=== PATIENT | female | born 1975 | race Caucasian/White ===

== ENCOUNTER 2017-11-17 21:12 | Inpatient (IN) | END 2017-11-20 11:33 | disposition home or self-care (01) | DRG 378 ==

== ENCOUNTER 2018-01-05 18:49 | Emergency (ER) | END 2018-01-05 22:38 | disposition left against medical advice (07) ==

== ENCOUNTER 2019-04-15 06:22 | Emergency (ER) | payer BC ==
[~2019-04-15] VITALS: Ht 162.6 cm; Wt 99.8 kg
[~2019-04-15 06:22] MED LIST: PANT40TA3 PO
[2019-04-15 06:25] VITALS: Ht 162.6 cm; Wt 99.8 kg
[2019-04-15] MEDS ORDERED: METHYLPREDNISOLONE 125 MG INJ IV ONE (07:00)
[2019-04-15] MEDS ORDERED: FAMOTIDINE 20 MG INJ IV ONE (07:00)
[2019-04-15] MEDS ORDERED: DIPHENHYDRAMINE 50 MG INJ IV ONE (07:00)
[2019-04-15] MEDS ORDERED: DIPHENHYDRAMINE 50 MG INJ IV STA (08:22)
[2019-04-15] MEDS ORDERED: EPINEPHrine 1 MG INJ IM STA ×2 (08:22→08:58)
[2019-04-15] MEDS ORDERED: ALBUTEROL 0.5% (NEB) 2.5 MG/0.5 ML AMP INH STA (08:22)
--- NOTE | 2019-04-15 08:33 | ERD ---
ER Documentation Chief Complaint Chief Complaint woke up with rt side headcahe , rt toothache and lip swelling HPI This is a 44-year-old female no past medical history that presents to the emergency department with a sudden onset of swelling of her lower lip. The patient states she awoke this morning and went to brush her teeth. When she brushed her teeth she noticed that her lips appeared very swollen. She also stated her tongue was swollen. Contrary to the triage note the patient denies any toothache. She is never had any allergies or anaphylactic reaction in the past. She has not been on any recent antibiotics. She said no fevers no shaking no chills. She does complain of difficulty in swallowing. ROS All systems reviewed and are negative except as per history of present illness. Medications Home Meds Active Scripts Pantoprazole* (Protonix*) 40 Mg Tablet.dr, 40 MG PO DAILY for 30 Days, #30 TAB Prov:NICHOLE FROST 11/20/17 Allergies Allergies: Coded Allergies: No Known Allergy (Unverified , 11/17/17) PMhx/Soc Medical and Surgical Hx: pt denies Medical Hx, pt denies Surgical Hx History of Surgery: No Anesthesia Reaction: No Hx Neurological Disorder: No Hx Respiratory Disorders: No Hx Cardiac Disorders: No Hx Psychiatric Problems: No Hx Miscellaneous Medical Probl: No Hx Alcohol Use: No Hx Substance Use: No Hx Tobacco Use: No Smoking Status: Never smoker Physical Exam Vitals Vital Signs Date Temp Pulse Resp B/P (MAP) Pulse Ox O2 O2 Flow FiO2 Time Delivery Rate 04/15/19 98.1 87 18 172/80 99 06:25 (110) Physical Exam Constitutional:Well-developed. Well-nourished. HEENT:Normocephalic. Atraumatic.Pupils were equal round reactive to light. Angioedema of the lower lip, macroglossia . no pooling of secretions within the oropharynx. No trismus. No brawny induration. No tenderness with percussion of the teeth. Neck: No nuchal rigidity. No lymphadenopathy. Respiratory: Not using accessory muscles of respiration.Lungs were clear to auscultation bilaterally. No rhonchi. No rales. No wheezing. Cardiovascular: Regular rate regular rhythm.No murmurs. No rubs were appreciated.S1, S2 normal. Distal pulses are palpable 2+ bilaterally. Skin: No petechia, no purpura. No lesions on the palms or the soles of the feet. No maculopapular rash. NEURO: Patient was alert, awake, orientated x3.patient was able to ambulate without any difficulty. Results 24 hrs Current Medications Medications Dose Sig/Chichi Start Time Status Last (Trade) Ordered Route PRN Stop Time Admin Dose Reason Admin 125 mg ONCE ONCE 04/15/19 DC 04/15/19 Methylprednis IV 07:00 07:11 olone Sodium 04/15/19 07:02 Succinate (Solu-Medrol) Famotidine 20 mg ONCE ONCE 04/15/19 DC 04/15/19 (Pepcid Iv) IV 07:00 07:11 04/15/19 07:02 50 mg ONCE ONCE 04/15/19 DC 04/15/19 Diphenhydrami IV 07:00 07:11 ne HCl 04/15/19 07:02 (Benadryl) 50 mg ONCE STAT 04/15/19 DC Diphenhydrami IV 08:22 ne HCl 04/15/19 08:24 (Benadryl) Epinephrine 0.5 mg ONCE STAT 04/15/19 DC IM 08:22 (EPINEPHrine) 04/15/19 08:24 Albuterol 10 mg ONCE STAT 04/15/19 DC (Proventil INH 08:22 0.5% (Neb)) 04/15/19 08:24 Procedures/MDM Is a 44-year-old female that presented to the emergency department for severe angioedema. Patient was immediately placed in a monitor and storage bin tender continuous pulse oximetry and IV access was attempted by nursing staff. The patient had received IV Benadryl Pepcid and steroids with no improvement of her symptoms. She received epinephrine. She was also given a continuous nebulizer treatment. On her second dose of epinephrine the patient had a significant amount of improvement of her angioedema which had completely resolved. I do feel that the patient was safe to be discharged home. The patient was discharged home in fair condition. They were instructed to return to the emergency department at any time if there was any worsening of their condition. The patient stated they would follow up with their PCP in the next 24-48 hours to initiate a suitable medication regimen under the care of their PCP as well as to allow their PCP to monitor any drug reactions. The patient was discharged home with prescriptions after they gave informed consent to the new medication. They were also fully informed by myself on the adverse effects and adverse drug interactions in order to provide adequate safeguards to prevent possible adverse reactions to medications. Critical Care: Time: 40 minutes Treatments/Evaluations: Close monitoring and treatment of unstable vital signs, cardiorespiratory, and neurologic status, while maintaining tight balance of fluid, respiratory, and cardiac interventions. Time does not include performing any of the above billable procedures. Departure Diagnosis: Primary Impression: Angioedema Encounter type: initial encounter Qualified Codes: T78.3XXA - Angioneurotic edema, initial encounter Condition: ANA Bernal MD Apr 15, 2019 08:33
[2019-04-15] MEDS ORDERED: EPIN0.3P4 INJ (09:05)
[2019-04-15] MEDS ORDERED: PRED20TA PO (09:05)
[2019-04-15 10:14] VITALS: BP 151/88; PULSE 98; RESP 20
== END 2019-04-15 10:20 | disposition home or self-care (01) ==
LOC: FTE 06:22 → E/R 10:20
DX: T78.3XXA Angioneurotic edema, initial encounter (principal)
CPT/HCPCS: 94644; 96372; 96374; 96375; 96376; 99284; J0171; J1200; J2930; Z7610

== ENCOUNTER 2019-04-28 13:02 | Emergency (ER) | payer BC ==
[~2019-04-28] VITALS: Ht 160 cm; Wt 99.2 kg
[~2019-04-28 13:02] MED LIST changes: +EPIN0.3P4 INJ; +PRED20TA PO
[2019-04-28 13:18] VITALS: Ht 160 cm; Wt 99.2 kg
[2019-04-28] MEDS ORDERED: FER325 PO ×2 (14:18→18:22)
[2019-04-28] MEDS ORDERED: ASC500 PO (14:19)
[2019-04-28] MEDS ORDERED: CHOL100062 PO (14:19)
[2019-04-28] MEDS ORDERED: SOD CHLORIDE 0.9% 1,000 ML IV STA (14:28)
--- NOTE | 2019-04-28 18:51 | ERD ---
ER Documentation Chief Complaint Chief Complaint Pt reports PCP called pt r/t hgb of 7.0 HPI This is a 44-year-old female presents to the emergency department complaining of generalized weakness, extreme exhaustion, and heavy vaginal bleeding is been present for several weeks. The patient indicated she ended her period 5 days ago. However she states she has a history of menorrhagia. She has required blood transfusions in the past. She stated her last menstrual cycle was more heavy than normal. She went to her primary care physician's office that she states she is been extremely exhausted with generalized weakness over the past several weeks. She had outpatient ancillary laboratory work performed on Wednesday, 3 days ago and had outpatient lab work performed. She received a call today that her hemoglobin was 7. She came to the emergency department to be further evaluated. She denies any hemoptysis hematemesis or melanotic stools. ROS All systems reviewed and are negative except as per history of present illness. Medications Home Meds Active Scripts Ferrous Sulfate* (Ferrous Sulfate*) 325 Mg Tabec, 325 MG PO DAILY, #20 TAB Prov:ANA BEGUM MD 04/28/19 Reported Medications Ascorbic Acid (Vitamin C) 500 Mg Tab, 1000 MG PO DAILY, TAB 04/28/19 Cholecalciferol* (Vitamin D3*) 1,000 Unit Tablet, 1000 UNIT PO DAILY, TAB 04/28/19 Ferrous Sulfate* (Ferrous Sulfate*) 325 Mg Tabec, 325 MG PO DAILY, TAB 04/28/19 Discontinued Scripts Prednisone* (Prednisone*) 20 Mg Tab, 60 MG PO DAILY for 5 Days, TAB Prov:ANA BEGUM MD 04/15/19 Epinephrine (Epipen 2-Haris) 0.3 Mg/0.3 Ml Pen.injctr, 1 EA INJ ONCE PRN for ALLERGIC REACTION, #1 EA Prov:ANA BEGUM MD 04/15/19 Pantoprazole* (Protonix*) 40 Mg Tablet.dr, 40 MG PO DAILY for 30 Days, #30 TAB Prov:NICHOLE FROST 11/20/17 Allergies Allergies: Coded Allergies: No Known Allergy (Unverified , 04/28/19) PMhx/Soc History of Surgery: No Anesthesia Reaction: No Hx Neurological Disorder: No Hx Respiratory Disorders: No Hx Cardiac Disorders: No Hx Psychiatric Problems: No Hx Miscellaneous Medical Probl: No Hx Alcohol Use: No Hx Substance Use: No Hx Tobacco Use: No Smoking Status: Never smoker Physical Exam Vitals Vital Signs Date Temp Pulse Resp B/P (MAP) Pulse Ox O2 O2 Flow FiO2 Time Delivery Rate 04/28/19 98.8 88 16 118/70 99 Room Air 15:41 (86) 04/28/19 98.8 97 16 145/86 99 13:18 (105) Physical Exam Constitutional:Well-developed. Well-nourished. HEENT:Normocephalic. Atraumatic.Pupils were equal round reactive to light. Moist mucous membranes.No tonsillar exudates. Conjunctival pallor Respiratory: Not using accessory muscles of respiration.Lungs were clear to auscultation bilaterally. No rhonchi. No rales. No wheezing. Cardiovascular: Regular rate regular rhythm.No murmurs. No rubs were appr eciated.S1, S2 normal. Distal pulses are palpable 2+ bilaterally. GI: Abdomen was soft. Nontender. Non Distended. No pulsatile abdominal masses or bruits. No rebound. No guarding. Bowel sounds were present and normal. : Patient was refusing a pelvic exam. Skin: Diffuse pallor. No petechia, no purpura. No lesions on the palms or the soles of the feet. No maculopapular rash. NEURO: Patient was alert, awake, orientated x3.No facial droop. Gait observed and normal with no ataxia.Speech had regular rate and rhythm. No focal neurological deficits. Result Diagram: 04/28/19 1412 04/28/19 1412 Results 24 hrs Laboratory Tests Test 04/28/19 14:12 04/28/19 14:22 04/28/19 14:34 White Blood Count 8.4 10^3/ul Red Blood Count 4.59 10^6/ul Hemoglobin 7.8 g/dl Hematocrit 28.6 % Mean Corpuscular Volume 62.3 fl Mean Corpuscular Hemoglobin 17.0 pg Mean Corpuscular 27.3 g/dl Hemoglobin Concent Red Cell Distribution Width 24.2 % Platelet Count 348 10^3/UL Mean Platelet Volume 10.3 fl Immature Granulocytes % 0.700 % Neutrophils % 59.5 % Lymphocytes % 31.2 % Monocytes % 6.6 % Eosinophils % 1.3 % Basophils % 0.7 % Nucleated Red Blood Cells % 0.2 /100WBC Immature Granulocytes # 0.060 10^3/ul Neutrophils # 5.0 10^3/ul Lymphocytes # 2.6 10^3/ul Monocytes # 0.6 10^3/ul Eosinophils # 0.1 10^3/ul Basophils # 0.1 10^3/ul Nucleated Red Blood Cells # 0.0 10^3/ul Sodium Level 138 mmol/L Potassium Level 4.0 mmol/L Chloride Level 100 mmol/L Carbon Dioxide Level 28 mmol/L Anion Gap 10 Blood Urea Nitrogen 9 mg/dl Creatinine 0.37 mg/dl Est Glomerular Filtrat > 60 mL/min Rate mL/min Glucose Level 187 mg/dl Calcium Level 9.5 mg/dl Iron Level 25 ug/dl Total Iron Binding Capacity 521 ug/dl Percent Iron Saturation 5 % SAT Ferritin Pending Total Bilirubin 0.3 mg/dl Direct Bilirubin 0.00 mg/dl Indirect Bilirubin 0.3 mg/dl Aspartate Amino 81 IU/L Transf (AST/SGOT) Alanine 68 IU/L Aminotransferase (ALT/SGPT) Alkaline Phosphatase 113 IU/L Lactate Dehydrogenase 591 IU/L Total Protein 8.0 g/dl Albumin 4.3 g/dl Globulin 3.70 g/dl Albumin/Globulin Ratio 1.16 POC Beta HCG, Qualitative NEGATIVE Urine Color YELLOW Urine Clarity CLEAR Urine pH 6.0 Urine Specific [place] 1.016 Urine Ketones NEGATIVE mg/dL Urine Nitrite NEGATIVE mg/dL Urine Bilirubin NEGATIVE mg/dL Urine Urobilinogen NEGATIVE mg/dL Urine Leukocyte Esterase NEGATIVE Corina/ul Urine Hemoglobin NEGATIVE mg/dL Urine Glucose NEGATIVE mg/dL Urine Total Protein NEGATIVE mg/dl Current Medications Medications Dose Sig/Chichi Start Time Status Last (Trade) Ordered Route PRN Stop Time Admin Dose Reason Admin Sodium 1,000 ml @ Q1H STAT 04/28/19 DC 04/28/19 Chloride 1,000 mls/hr IV 14:28 14:46 04/28/19 15:27 Procedures/MDM This is a 44-year-old female presented to the emergency department with a known history of anemia and heavy vaginal bleeding. She has been seen by her DR[employer] for the menorrhagia. The patient however had a hemoglobin of 7.8 here in the emergency department. Patient conjunctival pallor and diffuse pallor of her skin. Given that the patient was symptomatic she was explained the risks of undergoing a blood transfusion but stated she would prefer to receive 1 unit of packed red blood cells as she has had this happen in the past. She provided a written consent. She was given 1 unit of packed red blood cells in the emergency department. Her symptoms are completely resolved. She had no adverse reactions to the transfusion. Observation Note: Time: 4 hours Family Hx: No Hypertension Evaluation: Multiple exams showed improving symptoms and no evidence of transfusion reaction. She now had normal color to her skin. She stated her symptoms had significantly improved with increased energy. Critical Care: Time: 35 minutes Treatments/Evaluations: Close monitoring and treatment of unstable vital signs, cardiorespiratory, and neurologic status, while maintaining tight balance of fluid, respiratory, and cardiac interventions. Time does not include performing any of the above billable procedures. Departure Diagnosis: Primary Impression: Encounter for laboratory test Additional Impression: Symptomatic anemia Condition: Fair Patient Instructions: Anemia ANA BEGUM MD Apr 28, 2019 18:51
[2019-04-28 19:37] VITALS: BP 120/77; PULSE 84; RESP 18
== END 2019-04-28 19:37 | disposition home or self-care (01) ==
LOC: E/R 13:02
DX: D59.1 Other autoimmune hemolytic anemias (principal)
CPT/HCPCS: 36430; 80053; 81003; 81025; 82728; 83540; 83615; 84466; 85025; 86850; 86900; 86901; 86920; 99285; J7030; P9016